=== PATIENT | female | born 1995 | race Caucasian/White ===

== ENCOUNTER 2023-10-03 17:59 | Inpatient (IN) ==
[2023-10-03] MEDS ORDERED: Prochlorperazine 5 mg/ml 2 ml VIAL (10 mg) IV PRN (18:19)
[2023-10-03] MEDS ORDERED: Lidocaine 1% VIAL 10 MG/ML 30 ML VIAL INJ PRN (18:19)
[2023-10-03] MEDS: Dinoprostone 10 MG VAG.SUPP VAGINAL ONE (18:55)
[2023-10-03 18:58] LABS: Urine Appearance Clear; Urine Bilirubin Negative (Negative); Urine Blood Negative (Negative); Urine Color Yellow; Urine Glucose Negative (Negative); Urine Ketones Trace (Negative); Urine Nitrite Negative (Negative); Urine Protein Trace (Negative); Urine Specific Gravity 1.027 (1.002-1.030); Urine Urobilinogen Negative (Negative)
[2023-10-03 19:10] LABS: Urine Bacteria 1+ /HPF (Absent); Urine Red Blood Cell Trace(0-2/hpf) /HPF (0-Trace); Urine Squamous Epithelial Cell Present /HPF (Absent); Urine White Blood Cell Trace(0-5/hpf) /HPF (0-Trace)
[2023-10-03 19:14] LABS: Urine Benzodiazepine Screen None Detected (None Detect); Urine Cannabinoids Screen None Detected (None Detect); Urine Opiates Screen None Detected (None Detect)
[2023-10-04] MEDS: Lactated Ringers 1000 ml BAG 1,000 ML IV ONE (08:50)
[2023-10-04 09:08] LABS: ABS Eosinophils 0.1 10^3/uL (0.0-0.5); ABS Lymphocytes 1.8 10^3/uL (1.0-4.8); ABS Monocytes 0.7 10^3/uL (0.0-0.9); ABS Neutrophils 7.6 10^3/uL (1.5-7.6); Eosinophil % 0.7 %; Hematocrit 37.3 % (35-45); Hemoglobin 12.9 g/dL (11.5-14.3); Lymphocyte % 17.4 %; Mean Corpuscular Hemoglobin 29.2 pg (27-33); Mean Corpuscular Hgb Conc 34.6 g/dL (31-36); Mean Corpuscular Volume 84.6 fL (80-97); Mean Platelet Volume 8.9 fL (7.5-11.2); Platelet Count 215 10^3/uL (150-450); White Blood Count 10.2 10^3/uL (3.8-11.8)
[2023-10-04 09:25] LABS: Urine Creatinine Concentration 171.46 mg/dL (20.00-320.00); Urine TP Creat Ratio 0.15 mg/mg
[2023-10-04 09:40] LABS: Albumin/Globulin Ratio 1.5 (1-3); Calcium 9.1 mg/dL (8.6-10.3); Creatinine, Serum 0.52 mg/dL (0.51-0.95); Globulin 2.6 g/dL (2-4); Potassium 4.3 mmol/L (3.5-5.0); Total Bilirubin 0.7 mg/dL (0.2-1.0); Total Protein 6.6 g/dL (6.4-8.9); Uric Acid 5.3 mg/dL (2.3-6.6); eGFR CKD-EPI 131.3 (>60)
[2023-10-04] MEDS: OBEPIDURAL (200 ML) 200 ML EPIDURAL ONE (10:49)
[2023-10-04] MEDS: Lidocaine 1.5% EPI 1:200,000 30 ML SDV ONE (10:49)
[2023-10-04] MEDS ORDERED: Sodium Citrate/Citric Acid LIQ 15 ML UDC PO PRN (10:55)
[2023-10-04] MEDS ORDERED: Phenylephrine 40 mcg/mL 10mL (400mcg) SYRINGE IV PUSH PRN ×2 (10:55)
[2023-10-04] MEDS: Lactated Ringers 1000 ml BAG 1,000 ML IV SCH (11:01)
[2023-10-04] MEDS: Oxytocin in LR 20,000 MILLI.UNIT/1,000 ML BAG IV SCH ×2 (11:47→21:10)
[2023-10-04 12:54] LABS: Urine Appearance Clear; Urine Bilirubin Negative (Negative); Urine Blood Negative (Negative); Urine Color Yellow; Urine Glucose Negative (Negative); Urine Ketones Negative (Negative); Urine Nitrite Negative (Negative); Urine Protein Trace (Negative); Urine Specific Gravity 1.023 (1.002-1.030); Urine Urobilinogen Negative (Negative); Urine pH 6.5 (5.0-8.0)
[2023-10-04] MEDS ORDERED: Dibucaine 1% OINT 28.35 GM TUBE PR PRN (21:09)
[2023-10-04] MEDS ORDERED: Witch Hazel PAD JAR TOPICAL PRN (21:09)
[2023-10-04] MEDS ORDERED: Glycerin ADULT 2.4 gm SUPP PR PRN (21:09)
[2023-10-04] MEDS ORDERED: Lactated Ringers 1000 ml BAG 1,000 ML IV SCH (22:00)
[2023-10-04] MEDS: OBEPIDURAL (200 ML) 200 ML EPIDURAL SCH (22:36)
[2023-10-05 07:27] LABS: ABS Eosinophils 0.1 10^3/uL (0.0-0.5); ABS Lymphocytes 1.6 10^3/uL (1.0-4.8); ABS Monocytes 0.6 10^3/uL (0.0-0.9); ABS Neutrophils 16.3 10^3/uL (1.5-7.6); Eosinophil % 0.3 %; Hematocrit 28.7 % (35-45); Hemoglobin 9.9 g/dL (11.5-14.3); Lymphocyte % 8.5 %; Mean Corpuscular Hemoglobin 29.2 pg (27-33); Mean Corpuscular Hgb Conc 34.5 g/dL (31-36); Mean Corpuscular Volume 84.6 fL (80-97); Platelet Count 192 10^3/uL (150-450); Red Blood Count 3.39 10^6/uL (3.63-4.92); Red Cell Distribution Width 13.9 % (12-17); White Blood Count 18.5 10^3/uL (3.8-11.8)
[2023-10-05] MEDS: Buffered Lidocaine 1% SYRIN 1 ml INTRADERM ONE (07:29)
[2023-10-05] MEDS: Lactated Ringers 1000 ml BAG 1,000 ML IV SCH (07:31)
[2023-10-05] MEDS: Lactated Ringers 1000 ml BAG 1,000 ML IV ONE (07:32)
[2023-10-06 07:59] VITALS: BP 120/81
== END 2023-10-06 10:57 | disposition home or self-care (01) | DRG 560 ==
LOC: MCHOBOUT 17:59 → MCHOB 18:13 → UNDODISIN 10-06 10:46
PROVIDERS: ADMIT Obstetrics & Gynecology; ATTEND Obstetrics & Gynecology